=== PATIENT | male | born 1975 | race Caucasian/White ===

== ENCOUNTER 2024-08-12 10:19 | Emergency (ER) | payer SELFPAY ==
[2024-08-12 11:28] LABS: Add Urine Microscopic? YES; Appearance Urine Clear (Clear); Bilirubin Urine Negative (Negative); Blood Urine Negative (Negative); Color Urine Dark Yellow (Yellow); Glucose Urine UA Negative (Negative); Ketones Urine Trace mg/dL (Negative); Leukocyte Esterase Ur Negative LEU/UL (Negative); Nitrate Urine Negative (Negative); Protein Urine Negative (Negative); Specific Grav Ur 1.021 (1.001-1.035); Urobilinogen Urine 0.2 mg/dL (<2.0); pH Urine 5.5 (5.0-9.0)
[2024-08-12 11:33] VITALS: BP 109/68; PULSE 89; RESP 16; TEMP 36.8; O2SAT 98
[2024-08-12 12:36] LABS: Trichomonas Vag PCR NOT DETECTED (NOT DETECTE)
[2024-08-12 13:01] LABS: Chlamydia trachomatis NOT DETECTED (NOT DETECTE); Neisseria gonorrhoeae PCR NOT DETECTED (NOT DETECTE)
[2024-08-12] MEDS: ACETAMINOPHEN 500 MG TABLET 1000 MG PO (13:03)
--- NOTE | 2024-08-12 13:17 | ED.GENADULT ---
HPI - General Adult General Chief complaint: Urogenital-Male Stated complaint: STI sx's Time Seen by Provider: 08/12/24 10:38 History of Present Illness HPI narrative: 49-year-old male presents to the emergency department for evaluation for urinary symptoms. Patient stated that he was having larger amounts of diluted semen than expected. Patient denies any pain or other discharge. Related Data Allergies Allergy/AdvReac Type Severity Reaction Status Date / Time escitalopram Allergy Unknown Unknown Verified 08/12/24 12:36 [email or web address] Allergy Unknown Unknown Verified 08/12/24 12:36 Review of Systems Review of Systems: All systems reviewed & are unremarkable except as noted in HPI and below PMFSH Family History Family History (Updated 11/04/16 @ 11:39 by DOCTOR UNKNOWN) Grandparent Diabetes mellitus Social History Social History Smoking status: Never smoker Alcohol intake: current Exam Narrative: APPEARANCE: Well appearing, no pain, no distress, well-nourished. HEAD: normocephalic, atraumatic. EYES: PERRLA/EOMI, conjunctivae clear. NOSE: Normal no drainage EARS:TMS clear with good light reflex. THROAT: Pharynx clear, no exudate. NECK: Supple. No adenopathy, no masses. RESPIRATORY: Airway patent, respirations nonlabored. Clear to auscultation bilaterally, no rales, rhonchi, wheezing. CARDIOVASCULAR: Regular rate and rhythm without murmurs rubs or gallops. ABDOMINAL: Soft, nontender, nondistended, normal bowel sounds MUSCULOSKELETAL: Moves all extremities. Strength/ROM intact, No edema, No calf tenderness. NEURO: Alert. Cranial nerves II through XII intact. Grossly intact SKIN: Warm, dry. Normal Color Course Vital Signs Vital signs: Vital Signs Temperature 98.2 F 08/12/24 11:33 Pulse Rate 89 08/12/24 11:33 Respiratory Rate 16 08/12/24 11:33 Blood Pressure 109/68 08/12/24 11:33 Pulse Oximetry 98 08/12/24 11:33 Temperature 98.2 F 08/12/24 11:33 Pulse Rate 89 08/12/24 11:33 Respiratory Rate 16 08/12/24 11:33 Blood Pressure 109/68 08/12/24 11:33 Pulse Oximetry 98 08/12/24 11:33 Medical Decision Making MDM Narrative Medical decision making narrative: 49-year-old male presents to emergency department for evaluation for urinary symptoms UA was negative for infection patient was negative for Trichomonas gonorrhea and chlamydia. Urine culture was ordered. Differential Diagnosis Differential Diagnosis: Trichomonas, gonorrhea, chlamydia, UTI, prostatitis Vital Signs Vital Signs: Vital Signs Temperature 98.2 F 08/12/24 11:33 Pulse Rate 89 08/12/24 11:33 Respiratory Rate 16 08/12/24 11:33 Blood Pressure 109/68 08/12/24 11:33 Pulse Oximetry 98 08/12/24 11:33 Temperature 98.2 F 08/12/24 11:33 Pulse Rate 89 08/12/24 11:33 Respiratory Rate 16 08/12/24 11:33 Blood Pressure 109/68 08/12/24 11:33 Pulse Oximetry 98 08/12/24 11:33 Lab Data Lab results reviewed: Yes I reviewed the patient's lab results. Labs: Lab Results 08/12/24 08/12/24 Range/Units 10:39 11:07 Urine Color Dark yellow (Yellow) Urine Appearance Clear (Clear) Urine pH 5.5 (5.0-9.0) Ur Specific [place] 1.021 (1.001-1.035) Urine Protein Negative (Negative) mg/dL Urine Glucose (UA) Negative (Negative) mg/dL Urine Ketones Trace H (Negative) mg/dL Ur Blood (Man) Negative (Negative) Urine Nitrate Negative (Negative) Urine Bilirubin Negative (Negative) Urine Urobilinogen 0.2 (<2.0) mg/dL Leukocyte Esterase Rfl Negative (Negative) BHARTI/UL C. trachomatis (PCR) Not detected (NOT DETECTE) N. gonorrhoeae (PCR) Not detected (NOT DETECTE) T. vaginalis (PCR) Not detected (NOT DETECTE) Discharge Plan Discharge Clinical Impression: Lower urinary tract symptoms Patient Disposition: Home, Self-Care Condition: Stable Instructions: Antibiotic Form Additional Instructions: Y
== END 2024-08-12 13:43 | disposition home or self-care (01) ==
PROVIDERS: Emergency Provider Emergency Medicine
DX: R36.9 Urethral discharge, unspecified (principal)
CPT/HCPCS: 81001; 87491; 87591; 87661; 99283; A9270